=== PATIENT | male | born 1990 | race Caucasian/White ===

== ENCOUNTER 2016-11-02 13:43 | Emergency (ER) | payer OTHER ==
[2016-11-02 13:48] VITALS: RESP 16; TEMP 98.1
--- NOTE | 2016-11-02 14:04 | EDPHY ---
H & P Time Seen by Provider: 11/02/16 13:49 HPI/ROS: CHIEF COMPLAINT: Feels like there is something stuck in my throat HISTORY OF PRESENT ILLNESS: This 26-year-old man was eating fried rice with large pieces of pork last night at 10:00 p.m.. He states that these pieces were the size of his thumb. He felt like 1 got stuck in his throat for about an hour and he tried get it down but without success. After an hour he made himself vomit and he felt like he got everything out of his stomach. Since then in including today he feels like there is an obstruction in his throat posterior to his sternal notch. He is able to the swallow water but feels like it has to go up and over and around something in his throat. No coughing or shortness of breath today. REVIEW OF SYSTEMS: Eye: no change in vision ENT: no sore throat Cardiac: no chest pain or syncope Pulmonary: no cough or SOB Abdomen: HPI Musculoskeletal: no back pain Skin: no rash Neuro: no headache Constitutional: no fever : no urinary symptoms A comprehensive 10 point review of systems is otherwise negative aside from elements mentioned in the history of present illness. PAST MEDICAL HISTORY: Negative Except for migraines in the remote past Social history: Nonsmoker General Appearance: Alert and conversant, cooperative. Eyes: No scleral icterus. ENT, Mouth: Normal mucous membranes. Normal pharynx, no angioedema. Respiratory: Normal respiratory effort, breath sounds equal, lungs are clear to auscultation. No rhonchi wheezing rales or stridor. Cardiovascular: Regular rate and rhythm. Gastrointestinal: Abdomen is soft and non tender. Neurological: Alert and oriented x3. Normally conversant. Face symmetric, normal movement and sensation in all extremities. Skin: Warm and dry, no rashes. Musculoskeletal: No peripheral edema and no joint swelling. Psychiatric: Not agitated. Mildly anxious. Emergency Department course/MDM: Most likely diagnosis would be esophageal inflammation and irritation after foreign body obstruction for 1 hour. He still feels significant sensation but can swallow water. Plan for Gastrografin swallow, discharge with GI follow-up if negative for obstruction. 1450: Swallow study is normal. Results discussed with the patient. Smoking Status: Never smoked Constitutional: Initial Vital Signs Temperature (C) 36.7 C 11/02/16 13:44 Heart Rate 67 04/15/17 13:44 Respiratory Rate 16 11/02/16 13:44 Blood Pressure 130/77 H 11/02/16 13:44 O2 Sat (%) 96 11/02/16 13:44 O2 Delivery Mode Room Air Allergies/Adverse Reactions: wasps Allergy (Mild, Uncoded 11/02/16 13:48) localized wasps Home Medications: Medication Instructions Recorded NK [No Known Home Meds] 11/02/16 MDM/Departure - MDM Diagnostics: Normal Gastrografin swallow per Dr. Goncalves at 2:48 p.m. Differential Diagnosis: Differential considered including but not limited to esophageal foreign body, esophageal obstruction, aspirated foreign body, esophageal irritation. - Depart Disposition: Home, Routine, Self-Care Clinical Impression: Esophageal foreign body Qualifiers: Encounter type: initial encounter Qualified Code(s): T18.108A - Unspecified foreign body in esophagus causing other injury, initial encounter Condition: Good Instructions: Esophageal Foreign Body (ED) Referrals: Shaheen Gutiérrez MD [Primary Care Provider] - As per Instructions Maine Smith MD [Medical Doctor] - As per Instructions (GI referral if you're still feeling symptomatic on Friday )
[2016-11-02 15:07] VITALS: BP 135/76; PULSE 75; O2SAT 98
== END 2016-11-02 15:06 | disposition home or self-care (01) ==
DX: T18.128A Food in esophagus causing other injury, initial encounter (principal); X58.XXXA Exposure to other specified factors, initial encounter